=== PATIENT | female | born 1990 | race Caucasian/White ===

== ENCOUNTER 2020-02-16 23:10 | Emergency (ER) | payer MEDICAID ==
[~2020-02-16] VITALS: Ht 162.6 cm; Wt 65.0 kg
[2020-02-16 23:12] VITALS: BP 141/69
[2020-02-16] MEDS ORDERED: SODIUM CHLORIDE FLUSH 10ML SYR IVF ONE (23:30)
[2020-02-16] MEDS ORDERED: MORPHINE SULFATE 4 MG/ML, 1ML IV PRN (23:30)
[2020-02-16] MEDS ORDERED: ONDANSETRON 2MG/ML, 2ML IVPush ONE (23:30)
[2020-02-16] MEDS ORDERED: DIPH,PERTUSS(ACELL),TET VAC/PF 0.5 ML IM-VACC ONE ×2 (23:30→23:48)
[2020-02-16] MEDS ORDERED: CEFAZOLIN PMX 1GM/50ML 50 ML IVPB ONE (23:30)
[2020-02-16] MEDS ORDERED: LIDOCAINE 2%, 20ML SQ ONE (23:30)
[2020-02-16] MEDS ORDERED: LORazepam 2 MG/ML, 1ML IVPush ONE (23:30)
[2020-02-16] MEDS ORDERED: LIDOCAINE-MPF 1%, 5ML ONE (23:31)
[2020-02-16] MEDS ORDERED: CEFAZOLIN PMX 1GM/50ML 50 ML ONE (23:47)
[2020-02-16] MEDS ORDERED: ONDANSETRON 2MG/ML, 2ML ONE (23:47)
[2020-02-16] MEDS ORDERED: LIDOCAINE-MPF 2% ,5ML ONE (23:47)
[2020-02-16] MEDS ORDERED: MORPHINE SULFATE 4 MG/ML, 1ML ONE (23:47)
[2020-02-16] MEDS ORDERED: LORazepam 2 MG/ML, 1ML ONE (23:48)
--- NOTE | 2020-02-17 00:07 | NUR ---
PT HERE FOR LAC TO LEFT HAND WHILE CUTTING CHICKEN. PIV PLACED. PT MEDICATED FOR PAIN AND ABX RUNNING. BLEEDING CONTROLLED. PT ABLE TO MOVE FINGERS. FAMILY AT BEDSIDE. CALL LIGHT IN REACH
--- NOTE | 2020-02-17 00:13 | NUR ---
REPORT RECEIVED FROM GUERLINE MATA.
== END 2020-02-17 02:18 | disposition home or self-care (01) ==
LOC: ED 02-17
DX: S66.123A Laceration of flexor muscle, fascia and tendon of left middle finger at wrist and hand level, initial encounter (principal); S66.127A Laceration of flexor muscle, fascia and tendon of left little finger at wrist and hand level, initial encounter; S66.125A Laceration of flexor muscle, fascia and tendon of left ring finger at wrist and hand level, initial encounter; S61.412A Laceration without foreign body of left hand, initial encounter; W26.0XXA Contact with knife, initial encounter; Y93.89 Activity, other specified; Y92.098 Other place in other non-institutional residence as the place of occurrence of the external cause; Y99.8 Other external cause status
CPT/HCPCS: 12044; 73130; 90471; 90715; 96365; 96375; 99285; J0690; J2060; J2270; J2405

== ENCOUNTER 2020-02-18 16:26 | Emergency (ER) | payer MEDICAID ==
[~2020-02-18] VITALS: Ht 162.6 cm; Wt 62.1 kg
[2020-02-18 16:27] VITALS: BP 111/70
[2020-02-18] MEDS ORDERED: METHOCARBAMOL 750 MG TABLET PO ONE (17:00)
[2020-02-18] MEDS ORDERED: KETOROLAC 30 MG/1 ML IM ONE (17:00)
== END 2020-02-18 17:23 | disposition home or self-care (01) ==
LOC: ED 17:13
DX: S61.412D Laceration without foreign body of left hand, subsequent encounter (principal); W45.8XXD Other foreign body or object entering through skin, subsequent encounter
CPT/HCPCS: 99281

== ENCOUNTER 2020-02-20 12:46 | Emergency (ER) | payer MEDICAID ==
[~2020-02-20] VITALS: Ht 162.6 cm; Wt 62.9 kg
[2020-02-20 12:49] VITALS: BP 114/74
--- NOTE | 2020-02-20 13:47 | NUR ---
vitals obtained by this tech
--- NOTE | 2020-02-20 14:11 | NUR ---
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
--- NOTE | 2020-02-20 14:42 | NUR ---
RESP EVEN AND UNLABORED, TAMEKA. PT RESTING ON GURNEY AWAITING DC PAPERWORK.
--- NOTE | 2020-02-20 14:57 | NUR ---
Patient given discharge instructions and they have confirmed that they understand the instructions. Patient ambulatory with steady gait.
== END 2020-02-20 14:58 | disposition home or self-care (01) ==
LOC: ED 14:34
DX: S64.40XA Injury of digital nerve of unspecified finger, initial encounter (principal); G62.9 Polyneuropathy, unspecified; X58.XXXA Exposure to other specified factors, initial encounter; Y93.89 Activity, other specified; Y92.89 Other specified places as the place of occurrence of the external cause; Y99.8 Other external cause status
CPT/HCPCS: 99283